=== PATIENT | male | born 1995 | race Caucasian/White ===

== ENCOUNTER 2018-03-27 17:05 | Emergency (ER) | payer OTHER ==
--- NOTE | 2018-03-27 17:13 | EDPHY ---
H & P Stated Complaint: Had transient numbness L side of face after regular migraine Time Seen by Provider: 03/27/18 17:13 - Personal History Current Tetanus Diphtheria and Acellular Pertussis (TDAP): Yes - Medical/Surgical History Other PMH: migraine - Social History Smoking Status: Never smoked Constitutional: Initial Vital Signs Temperature (C) 36.8 C 03/27/18 17:09 Heart Rate 88 03/27/18 17:09 Respiratory Rate 18 03/27/18 17:09 Blood Pressure 132/74 H 03/27/18 17:09 O2 Sat (%) 96 03/27/18 17:09 O2 Delivery Mode Room Air Allergies/Adverse Reactions: No Known Allergies Allergy (Unverified 03/27/18 17:12) Home Medications: Medication Instructions Recorded NK [No Known Home Meds] 03/27/18 Medical Decision Making - Diagnostics Imaging Results: Imaging Impressions Brain MRI 03/27/18 17:21 Impression: 1. Active severe left-sided frontal ethmoid and maxillary sinusitis. 2. Prominent lingual tonsils. 3. Normal brain. A message was left with [facility] for Dr. Barnes at 6:30 PM. Imaging: Discussed imaging studies w/ eligibility technician Radiologist, I viewed and interpreted images myself ED Course/Re-evaluation: CHIEF COMPLAINT: Left-sided facial numbness HISTORY OF PRESENT ILLNESS: The patient is a 22 y/o male with a history of migraines complaining of left- sided facial numbness today. This morning he developed spotty vision and took Excedrin as this typically occurs when he has a migraine. He then developed numbness on the left side of his face that radiated up. This is abnormal as he has never had numbness with prior migraines. The numbness then occurred on the left side of his tongue, lips, and cheek. The numbness has slowly improved but he is also feeling weaker on the left side. He denies difficulty talking, chest pain, shortness of breath, abdominal pain, urinary or bowel complaints, fevers. REVIEW OF SYSTEMS: A 10 point review of systems was performed and is negative with the exception of the elements mentioned in the history of present illness. PHYSICAL EXAM: HR, BP, O2 Sat, RR. Temp noted General Appearance: Anxious, alert, well hydrated, appropriate, and non-toxic appearing. Head: Atraumatic without scalp tenderness or obvious injury Eyes: Pupils equal, round, reactive to light and accommodation, EOMI, no trauma , no injection. Ears: Clear bilaterally, no perforation, normal landmarks Nose: Atraumatic, no rhinorrhea, clear. Throat: There is no erythema or exudates, no lesions, normal tonsils, mucus membranes moist. Neck: Supple, nontender, no lymphadenopathy. Respiratory: No retractions, no distress, no wheezes, and no accessory muscle use. Lungs are clear to auscultation bilaterally. Cardiovascular: Regular rate and rhythm, no murmurs, rubs, or gallops. Bilateral carotid, radial, dorsalis pedis, and posterior tibial pulses intact. Good capillary refill all extremities. Gastrointestinal: Abdomen is soft, nontender, non-distended, no masses, no rebound, no guarding, no peritoneal signs. Musculoskeletal: Normal active ROM of all extremities, atraumatic. Neurological: Alert, appropriate, and interactive. The patient has normal DTRs and non-focal cranial nerves, motor, sensory, and cerebellar exam. Skin: No rashes, good turgor, no nodules on palpation. Past medical history: Migraine Past surgical history: Denies Family history: Denies Social history: Student at , single, lives in [place] DIAGNOSTICS/PROCEDURES/CRITICAL CARE TIME: Brain MRI:Active severe left-sided frontal, ethmoid, and maxillary sinusitis. Prominent lingual tonsils. Normal brain. DIFFERENTIAL DIAGNOSIS: The differential diagnosis for the patient's facial numbness included but was not limited to atypical migraine, subarachnoid hemorrhage, migraine headache, tension headache and infectious causes such as meningitis, pharyngitis and sinusitis. MEDICAL DECISION MAKING: The patient is a 22 y/o male with a history of migraines presenting with left- sided facial numbness today. On exam he is anxious but has a normal neurological exam. Brain MRI ordered; labs are not indicated at this time. 1830: I spoke with Dr. Ramirez, radiologist, regarding patient's brain MRI findings. There is active severe left-sided frontal, ethmoid, and maxillary sinusitis with prominent lingual tonsils. He has a normal brain. 184: Reassessed patient and discussed imaging findings. Return precautions provided; patient is comfortable with this plan. Departure - Departure Disposition: Home, Routine, Self-Care Clinical Impression: Atypical migraine, Numbness and tingling of left side of face Migraine Qualifiers: Migraine type: without aura Status migrainosus presence: with status migrainosus Intractability: intractable Qualified Code(s): G43.011 - Migraine without aura, intractable, with status migrainosus Sinusitis Qualifiers: Sinusitis location: frontal Chronicity: acute Recurrence: non-recurrent Qualified Code(s): J01.10 - Acute frontal sinusitis, unspecified Condition: Good Instructions: Sinusitis (ED), Migraine Headache (ED) Additional Instructions: Please obtained Flonase nasal spray. This is available [id number]. Use as directed. Sinusitis will not clear significantly without the use of decongestants. Please obtain a [id number] decongestant such as Sudafed. Drink plenty of fluid with this decongestant. Decongestants may keep her awake at night. If you are unable to sleep secondary to nasal congestion, consider trying Afrin nasal spray. Do not use Afrin for more than 3 days. Please take Tylenol or ibuprofen for headache pain and facial pain. Mainstay of therapy will be to drink plenty of fluids, control your symptoms with [id number] medications, and get plenty of rest. Return to the emergency department or seek care urgently if you're symptoms are worsening despite the above treatment, if you develop shortness of breath, if you're unable to drink fluids secondary to throat pain or other issues, if you developed, vomiting, diarrhea, or other concerns. Referrals: FILIBERTO Diaz,. [Clinic] - As per Instructions Report Scribed for: Jules Barnes Report Scribed by: Lary Boo Date of Report: 03/27/18 Time of Report: 17:17
[2018-03-27 19:05] VITALS: BP 122/75
== END 2018-03-27 19:02 | disposition home or self-care (01) ==
DX: G43.011 Migraine without aura, intractable, with status migrainosus (principal); J01.10 Acute frontal sinusitis, unspecified; R20.2 Paresthesia of skin